=== PATIENT | male | born 1995 | race Caucasian/White ===

== ENCOUNTER 2020-12-28 13:12 | Outpatient (CLI) | payer BC | END 2020-12-28 13:13 | disposition critical access hospital (66) | LOC: EMS 13:12 | DX: F41.9 Anxiety disorder, unspecified (principal) | CPT/HCPCS: A0425; A0429 ==

== ENCOUNTER 2020-12-28 13:54 | Emergency (ER) | payer BC ==
[2020-12-28] MEDS ORDERED: diazePAM 5 MG TABLET PO STA (14:21)
[2020-12-28] MEDS ORDERED: ESCITALOPRAM 10 MG TABLET PO STA (14:21)
--- NOTE | 2020-12-28 14:26 | ED Physician Documentation ---
History of Present Illness - Stated complaint Stated Complaint: ANXIETY - Chief complaint Chief Complaint: MHE - History obtained from History obtained from: Patient - Additonal information Additional information: Patient comes emergency department chief complaint of feeling anxious and just "terrible". He states that he is normally on Lexapro for depression and anxiety, but thinks that his last dose of this was 4 days ago. He states he has been on a boudreaux over the weekend and that he is a chronic alcoholic with a binge pattern. He states his last drink was approximately 14 hours ago. He den ies any suicidal ideation. No nausea or vomiting. He just states that he is feeling very stressed and has a lot of "awful" things going on in his life right now. He lives in [place] with his father and is out here visiting a woman. He plans to go back to [place] today and states he has a full supply of his Lexapro there. No tremors or hallucinations. No other complaints at this time. No use of any other substances. Review of Systems Ten Systems: 10 systems reviewed and negative Constitutional: reports: Reviewed and negative Eyes: reports: Reviewed and negative Ears: reports: Reviewed and negative Nose: reports: Reviewed and negative Throat: reports: Reviewed and negative Cardiac: reports: Reviewed and negative Respiratory: reports: Reviewed and negative GI: reports: Reviewed and negative : reports: Reviewed and negative Skin: reports: Reviewed and negative Musculoskeletal: reports: Reviewed and negative Neurologic: reports: Reviewed and negative Psychiatric: reports: Anxiety Endocrine: reports: Reviewed and negative Immunocompromised: reports: Reviewed and negative PD PAST MEDICAL HISTORY - Present Medications Home Medications: Ambulatory Orders Medication Instructions Recorded Confirmed Escitalopram [Lexapro] 15 mg PO DAILY 12/28/20 12/28/20 - Allergies Allergies/Adverse Reactions: Allergies Allergy/AdvReac Type Severity Reaction Status Date / Time No Known Drug Allergies Allergy Verified 12/28/20 14:04 PD ED PE NORMAL - Vitals Vital signs reviewed: Yes - General General: Alert and oriented X 3, Well developed/nourished, Other (Patient appears anxious, intermittently tearful.) - HEENT HEENT: Atraumatic, PERRL, EOMI, Moist mucous membranes - Neck Neck: Supple, no meningeal sign - Cardiac Cardiac: RRR, No murmur, Strong equal pulses - Respiratory Respiratory: No respiratory distress, Clear bilaterally - Abdomen Abdomen: Non distended - Derm Derm: Normal color, Warm and dry, No rash - Extremities Extremities: No deformity, Normal ROM s pain, No edema - Neuro Neuro: Alert and oriented X 3, remedy developer 2-12 intact, Normal speech, Other (Grossly intact) - Psych Psych: Other (Patient appears anxious and tearful.) Results - Vitals Vitals: Vital Signs - 24 hr 12/28/20 12/28/20 13:59 15:18 Temperature 98.6 C H 36.9 C Heart Rate 114 H 90 Respiratory 18 16 Rate Blood Pressure 142/105 H 142/93 H O2 Saturation 99 96 Oxygen O2 Source Room air PD MEDICAL DECISION MAKING - ED course Complexity details: considered differential, d/w patient ED course: Patient is not suicidal or homicidal, and mainly was here for symptomatic control. He was treated with 10 mg of Valium and a dose of his Lexapro. The patient was found to be feeling much better after treatment. I have advised him to get back on his Lexapro when he gets home tonight. We have discussed the usual indications for return. Departure - Departure Disposition: 01 Home, Self Care Clinical Impression: Anxiety Condition: Stable Instructions: ED Panic Attack Comments: Please get back on your Lexapro tonight. Discharge Date/Time: 12/28/20 15:58
[2020-12-28 15:19] VITALS: BP 142/93
== END 2020-12-28 15:58 | disposition home or self-care (01) ==
LOC: ED 13:54
DX: F41.9 Anxiety disorder, unspecified (principal)
CPT/HCPCS: 99283; A9270